=== PATIENT | female | born 1970 | race Caucasian/White ===

== ENCOUNTER → 2018-03-30 16:19 | Outpatient (CLI) | payer OTHER, SELFPAY ==
--- NOTE | 2018-03-30 16:22 | MM_ITS ---
MM Dig screening mamm BI w/CAD ORDERING PHYSICIAN : Roberto Carlos Garg MD PATIENT AGE: 47 years GENDER: Female COMPARISON: Only October 2012 bilateral mammogram available, INDICATION: ITS.REASON: SCREENING no hormones. No new complaints.. Family history. Paternal aunt with breast cancer TECHNIQUE: Standard CC and MLO images were obtained. R2 CAD reviewed. FINDINGS: Low-density breast bilaterally. Generalized fatty replacement. No dominant mass nor suspicious calcification . No significant change since prior studies in either breast. . IMPRESSION: No new areas of concern. Stable bilateral mammogram. Follow follow-up in one recommended BI-RADS Category: 1 Negative RECOMMENDED FOLLOW-UP: 1YR 1 YEAR FOLLOW-UP (A letter has been sent to the patient regarding results of the study.)
== END ==
PROVIDERS: PCP Internal Medicine Adolescent Medicine; Visit Provider Internal Medicine Adolescent Medicine
DX: Z12.31 Encounter for screening mammogram for malignant neoplasm of breast (principal)
CPT/HCPCS: 77067

== ENCOUNTER 2019-09-19 06:05 | Emergency (ER) | payer OTHER, SELFPAY ==
[2019-09-19 06:06] VITALS: BP 116/77; PULSE 91; RESP 16; TEMP 36.7; O2SAT 99; BMI 32.5
--- NOTE | 2019-09-19 06:36 | HMH.EDNVD ---
ED Disposition Clinical Impression: Gastroenteritis Disposition: Home, Self-Care Condition on Discharge: Good Instructions: DI for Nausea -- Adult Additional Instructions: fluids and see pcp for follow up Referrals: Roberto Carlos Garg MD [Primary Care Provider] - - Critical Care Critical Care Time: No Attestation: On 09/19/19, the high probability of a clinically significant, sudden or life threatening deterioration of the following system(s) required my full and direct attention, intervention and personal management. The time I documented below is in addition to time spent performing reported procedures but includes the following listed in this critical care notation. Medical Decision Making - Medical Records Medical records reviewed: Yes: I reviewed the patient's medical records. - Henry Inquiry Pt receiving controlled substance: No Vital Signs: 09/19/19 06:06 09/19/19 07:27 Temperature 98.1 F Temperature Source Oral Pulse Rate [Left Radial] 91 H 88 Respiratory Rate 16 16 Blood Pressure [Right Arm] 116/77 115/68 Blood Pressure Mean [Right Arm] 90 83 Blood Pressure Source [Right Arm] Automatic Cuff Blood Pressure Position [Right Arm] Sitting Sitting 02 Sat by Pulse Oximetry 99 Oxygen Delivery Method Room Air - Lab Data Lab results reviewed: Yes: I reviewed the patient's lab results. Lab Results 09/19/19 06:18: WBC 12.6 H, RBC 5.20, Hgb 15.6, Hct 45.7, MCV 87.8, MCH 29.9, MCHC 34.1, RDW 13.8, Plt Count 292, MPV 7.5, Neut % (Auto) 79.4, Lymph % (Auto) 13.1, [place] % (Auto) 4.9, Eos % (Auto) 1.9, Baso % (Auto) 0.7, Neut # (Auto) 10.0 H, Lymph # (Auto) 1.6, [place] # (Auto) 0.6, Eos # (Auto) 0.2, Baso # (Auto) 0.1, ESR 14 09/19/19 06:18: Sodium 139, Potassium 3.3 L, Chloride 101, Carbon Dioxide 27, Anion Gap 14.3, BUN 14, Creatinine 1.10 H, Estimated Creat Clear 107, Estimated GFR 53 L, Est GFR ( Amer) 64, Glucose 140 H, Calcium 9.5, Total Bilirubin 0.7, AST 22, ALT 16, Alkaline Phosphatase 108, C-Reactive Protein 227.2 H, Total Protein 8.4 H, Albumin 4.5, Globulin 3.9 H, Albumin/Globulin Ratio 1.2, Amylase 42 09/19/19 06:18: Lipase 53 09/19/19 06:18: SARS-CoV-2 IgG Ab (Rapid) Negative, SARS-CoV-2 IgM Ab (Rapid) Negative Result diagrams: 09/19/19 06:18 09/19/19 06:18 Orders (Tests/Meds): ED MEDICATIONS Generic Name Dose Route Start Last Admin Trade Name Freq PRN Reason Stop Dose Admin Sodium Chloride 1,000 mls @ 999 mls/hr 09/19/19 07:15 09/19/19 07:02 Sod Chlor 0.9% 1000ml Bag IV 09/19/19 08:15 999 mls/hr .Q1H1M LINH Administration Discontinued Medications Generic Name Dose Route Start Last Admin Trade Name Freq PRN Reason Stop Dose Admin Sodium Chloride 1,000 mls @ 999 mls/hr 09/19/19 06:45 09/19/19 06:38 Sod Chlor 0.9% 1000ml Bag IV 09/19/19 07:45 999 mls/hr .Q1H1M LINH Administration Ketorolac Tromethamine 30 mg 09/19/19 06:31 09/19/19 06:38 Toradol 30mg/Ml Vial IV 09/19/19 06:32 30 mg ONCE ONE Administration Ondansetron HCl 4 mg 09/19/19 06:31 09/19/19 06:38 Zofran 4mg/2ml Vial IV 09/19/19 06:32 4 mg ONCE ONE Administration ORDERS Category Date Time Status Diarrhea 23 Panel, PCR Stat Lab 09/19/19 06:30 Ordered Rapid Influenza A&B Antigens Stat Lab 09/19/19 08:00 Received Nausea/Vomiting/Diarrhea HPI - General Chief complaint: Nausea/Vomiting/Diarrhea Stated complaint: Vomiting,Diarrhea Time Seen by Provider: 09/19/19 06:20 Mode of Arrival: Ambulatory Source of Information: Patient, Medical Record Limitations: No Limitations Description of Symptoms (Recalled from ER Triage Doc. by RN): pt c/o of n/v/d and body aches since monday. pt denies abd. pain or recent fever at this time. - History of Present Illness HPI Narrative: pt with n/v and diarrhea over the last 2 days - achey - no rash - no sig cough MD complaint: nausea, vomiting, diarrhea Onset (ago): day(s) Associated Abdominal Pain: Yes Location of p
[2019-09-19 06:39] LABS: Basophils # 0.1 K/mm3 (0-0.2); Basophils % 0.7 % (0.1-2.0); Eosinophils # 0.2 K/mm3 (0.0-0.4); Eosinophils % 1.9 % (0.1-12.0); Hematocrit 45.7 % (37.0-47.0); Hemoglobin 15.6 g/dL (12.2-16.2); Lymphocytes # 1.6 K/mm3 (0.7-4.5); Lymphocytes % 13.1 % (10-50); Mean Corpuscular HGB Conc 34.1 g/dL (31.8-35.4); Mean Corpuscular Hemoglobin 29.9 pg (27.0-31.2); Mean Corpuscular Volume 87.8 fl (81-99); Mean Platelet Volume 7.5 fl (7.4-10.4); Monocytes # 0.6 K/mm3 (0.1-1.0); Monocytes % 4.9 % (1.7-9.3); Neutrophils % 79.4 % (37.0-80.0); Platelet Count 292 K/mm3 (142-424); Red Cell Distribution Width 13.8 % (11.5-17.5); White Blood Count 12.6 K/mm3 (4.8-10.8)
[2019-09-19 06:42] LABS: Chloride 101 mmol/L (98-107)
[2019-09-19 06:43] LABS: Potassium 3.3 mmoL/L (3.5-5.1); Sodium 139 mmol/L (136-145)
[2019-09-19 06:45] LABS: Alanine Aminotransferase 16 U/L (12-78); Amylase 42 U/L (30-110); Anion Gap 14.3 mEq/L (5-15); Aspartate Amino Transferase 22 U/L (14-36); Blood Urea Nitrogen 14 mg/dl (7-17); Carbon Dioxide 27 mmol/L (22.0-30.0); Creatinine Clearance Estimated 107 mL/min (50-200); Estimated Glomerular Filt Rate 53 ml/min (>60); GFR (African American) 64 ML/MIN (>60)
[2019-09-19 06:46] LABS: Albumin Level 4.5 g/dl (3.5-5.0); Albumin/Globulin Ratio 1.2 (1.1-1.8); Alkaline Phosphatase 108 U/L (38-126); Bilirubin,Total 0.7 mg/dl (0.2-1.3); Calcium 9.5 mg/dl (8.4-10.2); Globulin 3.9 g/dL (1.3-3.2); Glucose 140 mg/dl (74-100); Total Protein,Serum 8.4 g/dl (6.3-8.2)
[2019-09-19 06:49] LABS: Lipase 53 U/L (23-300)
[2019-09-19 06:51] LABS: C-Reactive Protein 227.2 mg/L (0-4)
[2019-09-19 07:10] LABS: Coronavirus 19 IgG Antibody Negative (Negative); Coronavirus 19 IgM Antibody Negative (Negative)
[2019-09-19 07:14] LABS: Erythrocyte Sedimentation Rate 14 mm/hr (0-20)
[2019-09-19 07:27] VITALS: BP 115/68; PULSE 88; RESP 16
[2019-09-19 08:20] VITALS: BP 112/78; PULSE 80; RESP 20; TEMP 36.8; O2SAT 98
== END 2019-09-19 08:34 | disposition home or self-care (01) ==
PROVIDERS: Emergency Provider Emergency Medicine; PCP Internal Medicine Adolescent Medicine
DX: K52.9 Noninfective gastroenteritis and colitis, unspecified (principal)
CPT/HCPCS: 80053; 82150; 83690; 85025; 85651; 86140; 86328; 87275; 87276; 96365; 96366; 96375; 99283; J2405

== ENCOUNTER → 2020-02-05 11:01 | Outpatient (CLI) | payer OTHER, SELFPAY ==
[2020-02-05 11:05] LABS: Microscopic, Urine URINE MICROSCOPIC (MICROSCOPIC)
[2020-02-05 11:51] LABS: Appearance,Urine CLEAR (Clear); Bilirubin,Urine Negative (Negative); Blood, Urine 2+ (Negative); Color,Urine YELLOW (Yellow); Glucose,Urine (UA) Negative (Negative); Ketones,Urine Negative (Negative); Leukocyte Esterase,Urine Negative (Negative); Nitrate,Urine Negative (Negative); Protein,Urine Negative (Negative); Urobilinogen,Urine 0.2 EU/dl (0.2)
[2020-02-05 12:10] LABS: Basophils % 0.8 % (0.1-2.0); Eosinophils # 0.5 K/mm3 (0.0-0.4); Eosinophils % 13.2 % (0.1-12.0); Hematocrit 49.6 % (37.0-47.0); Hemoglobin 16.2 g/dL (12.2-16.2); Lymphocytes # 0.8 K/mm3 (0.7-4.5); Lymphocytes % 22.4 % (10-50); Mean Corpuscular HGB Conc 32.6 g/dL (31.8-35.4); Mean Corpuscular Hemoglobin 28.9 pg (27.0-31.2); Mean Corpuscular Volume 88.7 fl (81-99); Monocytes # 0.2 K/mm3 (0.1-1.0); Monocytes % 6.9 % (1.7-9.3); Neutrophils % 56.8 % (37.0-80.0); Platelet Count 284 K/mm3 (142-424); Red Blood Count 5.59 M/mm3 (4.20-5.40); Red Cell Distribution Width 13.9 % (11.5-17.5); White Blood Count 3.5 K/mm3 (4.8-10.8)
[2020-02-05 13:07] LABS: Alanine Aminotransferase 13 U/L (12-78); Albumin Level 4.8 g/dl (3.5-5.0); Albumin/Globulin Ratio 1.5 (1.1-1.8); Alkaline Phosphatase 99 U/L (38-126); Anion Gap 16.8 mEq/L (5-15); Aspartate Amino Transferase 24 U/L (14-36); Bilirubin,Total 0.4 mg/dl (0.2-1.3); Blood Urea Nitrogen 15 mg/dl (7-17); Calcium 9.6 mg/dl (8.4-10.2); Carbon Dioxide 23 mmol/L (22.0-30.0); Chloride 100 mmol/L (98-107); Estimated Glomerular Filt Rate 53 ml/min (>60); GFR (African American) 64 ML/MIN (>60); Globulin 3.1 g/dL (1.3-3.2); Glucose 84 mg/dl (74-100); Potassium 4.8 mmoL/L (3.5-5.1); Sodium 135 mmol/L (136-145); Total Protein,Serum 7.9 g/dl (6.3-8.2)
[2020-02-05 13:13] LABS: C-Reactive Protein 11.6 mg/L (0-4)
[2020-02-05 14:14] LABS: Erythrocyte Sedimentation Rate 7 mm/hr (0-20)
[2020-02-08 08:16] LABS: Cold Agglutinin Titer, Quant Negative (Neg <1:32)
== END ==
LOC: LAB 11:01
PROVIDERS: Visit Provider Internal Medicine Adolescent Medicine
DX: M19.90 Unspecified osteoarthritis, unspecified site (principal); R11.0 Nausea
CPT/HCPCS: 36415; 80053; 81001; 85025; 85651; 86140; 86157

== ENCOUNTER 2021-01-22 07:24 | Emergency (ER) | payer OTHER, SELFPAY ==
[2021-01-22 07:26] VITALS: BP 148/86; PULSE 86; RESP 18; TEMP 36.8; O2SAT 96; BMI 31.1
--- NOTE | 2021-01-22 07:46 | HMH.EDSKAF ---
ED Disposition Clinical Impression: Needle stick injury of finger of left hand Disposition: Home, Self-Care Condition on Discharge: Good Instructions: DI for Puncture Wound Additional Instructions: follow up with pcp Referrals: Roberto Carlos Garg MD [Primary Care Provider] - - Critical Care Critical Care Time: No Attestation: On 01/22/21, the high probability of a clinically significant, sudden or life threatening deterioration of the following system(s) required my full and direct attention, intervention and personal management. The time I documented below is in addition to time spent performing reported procedures but includes the following listed in this critical care notation. Medical Decision Making - Medical Records Medical records reviewed: Yes: I reviewed the patient's medical records. - Henry Inquiry Pt receiving controlled substance: No Vital Signs: 01/22/21 07:26 Temperature 98.2 F Temperature Source Oral Pulse Rate [Right Radial] 86 Respiratory Rate 18 Blood Pressure [Left Arm] 148/86 H Blood Pressure Mean [Left Arm] 106 Blood Pressure Source [Left Arm] Automatic Cuff Blood Pressure Position [Left Arm] Sitting 02 Sat by Pulse Oximetry 96 Oxygen Delivery Method Room Air - Lab Data Lab results reviewed: Yes: I reviewed the patient's lab results. Orders (Tests/Meds): ORDERS Category Date Time Status Complete Blood Count Auto Diff Stat Lab 01/22/21 07:35 Ordered HBsAg Screen Stat Lab 01/22/21 07:35 Ordered HIV Panel [id number] Stat Lab 01/22/21 07:35 Ordered Hepatitis B Surf Ab Quant Stat Lab 01/22/21 07:35 Ordered Hepatitis C Antibody Stat Lab 01/22/21 07:35 Ordered Liver Panel Stat Lab 01/22/21 07:35 Ordered PT/PTT Stat Lab 01/22/21 07:35 Ordered Medical Decision Narrative: needle stick lt index finger known source and no intervention at this time Skin/Abscess/FB HPI - General Chief complaint: Skin/Abscess/Foreign Body Stated complaint: Needle Stick Time Seen by Provider: 01/22/21 07:46 Mode of Arrival: Ambulatory Source of Information: Patient, Medical Record Limitations: No Limitations Description of Symptoms (Recalled from ER Triage Doc. by RN): pt had a needle stick from a pt to L index finger. - History of Present Illness HPI narrative: needle stick rt index finger - known source - utd with tetanus complaint: other (needle stick) Onset (ago): hour(s) Tetanus up to date: yes Location: LUE Severity: mild Associated symptoms: denies other symptoms Treatments prior to arrival: none - Related Data Home Medications Medication Instructions Recorded Confirmed Trazodone HCl 25 mg PO DAILY 07/21/17 07/21/17 Previous Rx's Medication Instructions Recorded Doxycycline Monohydrate 100 mg PO BID #14 cap 07/21/17 [Doxycycline 100mg Capsule] Fluconazole [Diflucan] 150 mg PO ONCE #2 tab 07/21/17 Fluticasone Propionate [Flonase 2 spr NS DAILY #1 bottle 07/21/17 50mcg nasal spray 16gm] predniSONE [Prednisone 5mg Tab 5 mg PO UD DOSE PK #21 pack 07/21/17 Dose-Pack] Allergies Allergy/AdvReac Type Severity Reaction Status Date / Time Penicillins Allergy Verified 07/21/17 11:31 [facility] History - Hepatitis A Screen Drug use history?: No High risk sexual behaviors?: No History of sexually transmitted infection?: No Currently employed?: No Childcare worker?: No Do you have indoor plumbing?: Yes Do you have electricity?: Yes Attestation statement:: This patient has been screened for Hepatitis A risk factors. I have reviewed the patient's past medical history: Yes Medical History: Denies:: Diabetes Mellitus Type 1, Diabetes Mellitus Type 2 - Social History Smoking Status: Former smoker Alcohol Intake: never Occupational Status: employed ROS Obtained: Yes All systems reviewed & no additional complaints - Constitutional Constitutional: Denies fever(s) - Eyes Eyes: Denies change in vision - ENT Ears, Nose, Mouth, and
[2021-01-22 07:53] VITALS: BP 148/86; PULSE 86; RESP 18; TEMP 36.8; O2SAT 96
[2021-01-22 08:07] LABS: Basophils # 0.1 K/mm3 (0-0.2); Basophils % 1.4 % (0.1-2.0); Eosinophils # 0.5 K/mm3 (0.0-0.4); Eosinophils % 5.6 % (0.1-12.0); Hemoglobin 14.9 g/dL (12.2-16.2); Lymphocytes # 2.6 K/mm3 (0.7-4.5); Lymphocytes % 29.4 % (10-50); Mean Corpuscular HGB Conc 32.4 g/dL (31.8-35.4); Mean Corpuscular Hemoglobin 30.1 pg (27.0-31.2); Mean Corpuscular Volume 92.9 fl (81-99); Mean Platelet Volume 8.5 fl (7.4-10.4); Monocytes # 0.2 K/mm3 (0.1-1.0); Monocytes % 2.8 % (1.7-9.3); Neutrophils # 5.3 K/mm3 (1.8-7.8); Neutrophils % 60.8 % (37.0-80.0); Platelet Count 357 K/mm3 (142-424); Red Blood Count 4.95 M/mm3 (4.20-5.40); White Blood Count 8.8 K/mm3 (4.8-10.8)
[2021-01-22 08:12] LABS: Alanine Aminotransferase 17 U/L (12-78); Aspartate Amino Transferase 27 U/L (14-36); Bilirubin,Unconjugated 0.3 mg/dL (0.0-1.1)
[2021-01-22 08:13] LABS: Albumin Level 4.2 g/dl (3.5-5.0); Alkaline Phosphatase 88 U/L (38-126); Bilirubin,Direct 0.1 mg/dl (0.0-0.4); Bilirubin,Indirect 0.3 mg/dL (0.0-0.9); Bilirubin,Total 0.4 mg/dl (0.2-1.3); Total Protein,Serum 7.1 g/dl (6.3-8.2)
[2021-01-22 08:15] LABS: Activated Partial Thrombo Time 27.8 seconds (22.8-30.6); INR 0.96 (0.9-1.1); Prothrombin Time 10.9 seconds (10.1-12.5)
[2021-01-23 08:51] LABS: HIV Screen 4th Generation wRfx Non Reactive (Non Reactive)
[2021-01-23 09:22] LABS: Hepatitis B Surf Ab Quant <3.1 mIU/mL (Immunity>9.9); Hepatitis B Surface Antigen Negative (Negative); Hepatitis C Antibody <0.1 s/co ratio (0.0-0.9)
== END 2021-01-22 07:53 | disposition home or self-care (01) ==
PROVIDERS: Emergency Provider Emergency Medicine; PCP Internal Medicine Adolescent Medicine
DX: W46.1XXA Contact with contaminated hypodermic needle, initial encounter; S61.231A Puncture wound without foreign body of left index finger without damage to nail, initial encounter; Y92.230 Patient room in hospital as the place of occurrence of the external cause
CPT/HCPCS: 80076; 85025; 85610; 85730; 86703; 86706; 87340; 87380; 99281; G0432

== ENCOUNTER → 2021-12-23 10:47 | Outpatient (CLI) | payer OTHER, SELFPAY ==
[2021-12-23 11:43] LABS: Basophils # 0.2 K/mm3 (0-0.2); Basophils % 1.7 % (0.1-2.0); Eosinophils # 0.4 K/mm3 (0.0-0.4); Eosinophils % 4.5 % (0.1-12.0); Hematocrit 44.1 % (37.0-47.0); Hemoglobin 14.4 g/dL (12.2-16.2); Lymphocytes # 3.2 K/mm3 (0.7-4.5); Lymphocytes % 36.1 % (10-50); Mean Corpuscular HGB Conc 32.6 g/dL (31.8-35.4); Mean Corpuscular Hemoglobin 29.7 pg (27.0-31.2); Mean Corpuscular Volume 91.2 fl (81-99); Mean Platelet Volume 7.8 fl (7.4-10.4); Monocytes # 0.5 K/mm3 (0.1-1.0); Monocytes % 5.9 % (1.7-9.3); Neutrophils # 4.5 K/mm3 (1.8-7.8); Neutrophils % 51.8 % (37.0-80.0); Platelet Count 366 K/mm3 (142-424); Red Blood Count 4.83 M/mm3 (4.20-5.40); Red Cell Distribution Width 13.7 % (11.5-17.5); White Blood Count 8.7 K/mm3 (4.8-10.8)
[2021-12-23 11:46] LABS: Chloride 106 mmol/L (98-107); Potassium 4.5 mmoL/L (3.5-5.1)
[2021-12-23 11:48] LABS: Sodium 138 mmol/L (136-145)
[2021-12-23 11:49] LABS: Anion Gap 10.5 mEq/L (5-15); Blood Urea Nitrogen 17 mg/dl (7-17); Calcium 8.7 mg/dl (8.4-10.2); Carbon Dioxide 26 mmol/L (22.0-30.0); Estimated Glomerular Filt Rate 59 ml/min (>60); GFR (African American) 71 ML/MIN (>60); Glucose 88 mg/dl (74-100)
[2021-12-23 12:04] LABS: Troponin I < 0.01 ng/ml (0.00-0.034)
== END ==
LOC: LAB 10:48
PROVIDERS: PCP Internal Medicine Adolescent Medicine; Visit Provider Physician Assistant
DX: R07.9 Chest pain, unspecified (principal); I10 Essential (primary) hypertension
CPT/HCPCS: 36415; 80048; 84484; 85025